=== PATIENT | male | born 1960 | race Caucasian/White ===

== ENCOUNTER 2021-08-18 11:49 | Day surgery (SDC) | payer MEDICARE ==
[2021-08-11 16:04] LABS: BASOPHILS % (AUTO) 0.1 % (0-1); EOSINOPHILS # (AUTO) 0.1 X10'3 (0-0.9); EOSINOPHILS % (AUTO) 0.7 % (0-6); LYMPHOCYTES # (AUTO) 2.2 X10'3 (1.1-4.8); LYMPHOCYTES % (AUTO) 28.2 % (21-51); MEAN CORPUSCULAR HEMOGLOBIN 34.2 PG (27.0-31.0); MEAN CORPUSCULAR HGB CONC 33.3 g/dL (33.0-36.5); MEAN CORPUSCULAR VOLUME 102.8 FL (78-98); MEAN PLATELET VOLUME 6.9 FL (7.4-10.4); MONOCYTES # (AUTO) 1.1 X10'3 (0-0.9); NEUTROPHILS # (AUTO) 4.4 X10'3 (1.8-7.7); PRE OP HEMATOCRIT 53.5 % (42.0-52.0); PRE OP HEMOGLOBIN 17.8 g/dL (14.0-17.9); PRE OP PLATELET COUNT 169 X10'3 (140-440); RED CELL DISTRIBUTION WIDTH 15.5 % (11.5-14.5)
[2021-08-11 16:26] LABS: ALBUMIN 3.5 G/DL (3.4-5.0); ALBUMIN/GLOBULIN RATIO 0.9 (1.1-1.5); ALKALINE PHOSPHATASE 73 IU/L (46-116); BLOOD UREA NITROGEN 17 MG/DL (7-18); CALCIUM 8.1 MG/DL (8.5-10.1); CHLORIDE 105 MMOL/L (99-107); CREATININE 1.21 MG/DL (0.60-1.10); PRE OP ALT 36 U/L (30-65); PRE OP ANION GAP 8 (8-16); PRE OP AST 29 U/L (10-37); PRE OP BILIRUB, TOTAL 0.4 MG/DL (0.0-1.0); PRE OP GLUCOSE 121 MG/DL (70-104); PRE OP POTASSIUM 4.3 MMOL/L (3.4-5.1); PRE OP SODIUM 140 MMOL/L (135-145); TOTAL CARBON DIOXIDE 27.2 MMOL/L (24-32); TOTAL PROTEIN 7.2 G/DL (6.4-8.2); eGFR 61 ML/MIN
[~2021-08-18] VITALS: Ht 172.7 cm; Wt 119.5 kg
[2021-08-18] VITALS (12 sets, daily range): BP systolic 136–147; BP diastolic 78–92
[~2021-08-18 11:49] MED LIST: ASPI-611 PO; LISI20TA28 PO; OXYC1TAB17 PO; VENL75CA55 PO; ZOLP5TAB2 PO; cefazolin/dext.iso 2gm/50ml IV ONE; famotidine 20mg tablet PO ONE; ringers solution, lacted 1,000 ML IV SCH
[2021-08-18] MEDS ORDERED: midazolam 1 mg/ML 2ml injection ONE (12:58)
[2021-08-18] MEDS ORDERED: FENTANYL CITRATE/PF 50 MCG/1 ML VIAL ONE ×2 (12:58→12:59)
[2021-08-18] MEDS ORDERED: glycopyrrolate 0.2mg/ml inj ONE (13:03)
[2021-08-18] MEDS ORDERED: rocuronium 10mg/ml inj IV ONE (13:03)
[2021-08-18] MEDS ORDERED: propofol inj 20 ML IV ONE (13:03)
[2021-08-18] MEDS ORDERED: phenylephrine 10mg/ml inj. ONE (13:03)
[2021-08-18] MEDS ORDERED: ePHEDrine 50MG/ML INJ. ONE (13:03)
[2021-08-18] MEDS ORDERED: neostigmine methylsulfate 1 MG/ML 10ml vial ONE (13:03)
[2021-08-18] MEDS ORDERED: dexamethasone sod phosphate 4mg/ml inj. ONE (13:03)
[2021-08-18] MEDS ORDERED: LIDOcaine 2% (20mg/ml) 5ml vial ONE (13:03)
[2021-08-18] MEDS ORDERED: ondansetron/PF 4mg/2ml inj ONE (13:03)
[2021-08-18] MEDS ORDERED: LIDOcaine 1% (10mg/ml)w/preservative inj. 20ml MDV ONE (13:22)
[2021-08-18] MEDS ORDERED: BUPIVAcaine 0.5% inj/PF 60 ML ONE (13:23)
[2021-08-18] MEDS ORDERED: BUPIVACAINE liposomal/PF 13.3 MG/ML vial IM ONE (13:23)
[2021-08-18] MEDS ORDERED: ringers solution, lacted 1,000 ML IV SCH (15:00)
[2021-08-18] MEDS ORDERED: morphine 4 MG/ML inj SYRINge IV PRN (15:00)
[2021-08-18] MEDS ORDERED: proCHLORperazine 10 MG/2 ml inj IV PRN (15:00)
[2021-08-18] MEDS ORDERED: ondansetron/PF 4mg/2ml inj IV PRN (15:00)
[2021-08-18] MEDS ORDERED: meperidine/PF 25mg/ml syringe IV PRN ×3 (15:00)
[2021-08-18] MEDS ORDERED: morphine 2 MG/ML inj. syringe IV PRN (15:00)
--- NOTE | 2021-08-18 15:03 | NUR ---
Received from OR via [facility] , accompanied by Anesthesiologist DR BAZAN and report given by Anesthesiolgist. PT PRESENTS WITH PIV 20G LEFT WRIST, ABD DRESSING CDI, VSS. Addendum: 08/18/21 at 1520 by Kay Pinon RN, RN Amended: Links added.
[2021-08-18] MEDS ORDERED: BUPIVAcaine 0.5% inj/PF 30 ml vial IJ ONE (15:10)
[2021-08-18] MEDS ORDERED: oxyCODONE/APAP 10/325mg tablet PO PRN (15:15)
--- NOTE | 2021-08-18 16:33 | NUR ---
I HAVE REVIEWED D/C INSTRUCTIONS WITH PATIENT AND THEY HAVE VERBALIZED UNDERSTANDING OF INSTRUCTIONS. PATIENT D/C HOME WITH ALL BELONGINGS AND FAMILY GAVE TRANSPORT Addendum: 08/18/21 at 1657 by Kay Pinon RN, RN Amended: Links added.
== END 2021-08-18 16:33 | disposition home or self-care (01) ==
LOC: PAS 11:49
PROVIDERS: ATTEND Surgery
DX: K43.2 Incisional hernia without obstruction or gangrene (principal); M62.08 Separation of muscle (nontraumatic), other site; F41.9 Anxiety disorder, unspecified; F32.A Depression, unspecified; G89.29 Other chronic pain; I10 Essential (primary) hypertension; M19.90 Unspecified osteoarthritis, unspecified site; E66.9 Obesity, unspecified; Z68.39 Body mass index [BMI] 39.0-39.9, adult; Z20.822 Contact with and (suspected) exposure to COVID-19; Z79.82 Long term (current) use of aspirin; Z79.899 Other long term (current) drug therapy; Z90.49 Acquired absence of other specified parts of digestive tract; Z98.890 Other specified postprocedural states; Z96.619 Presence of unspecified artificial shoulder joint
CPT/HCPCS: 36415; 49654; 64488; 80053; 82948; 85025; C1781; C9290; J1100; J2250; J2370; J2405; J2704; J2710; J3010; J3490; J7030; J7120; S0020; U0003; U0005; Z7506; Z7508; Z7512; A4215; A4618

== ENCOUNTER 2021-09-23 13:30 | Outpatient (CLI) | payer MEDICARE ==
[~2021-09-23 13:30] MED LIST changes: -cefazolin/dext.iso 2gm/50ml IV ONE; -famotidine 20mg tablet PO ONE; -ringers solution, lacted 1,000 ML IV SCH
[2021-09-23] MEDS ORDERED: LOSA100T57 PO (13:32)
[2021-09-23] MEDS ORDERED: AMLO5TAB16 PO (13:32)
[2021-09-23 14:26] LABS: BASOPHILS % (AUTO) 0.3 % (0-1); EOSINOPHILS % (AUTO) 0.5 % (0-6); LYMPHOCYTES # (AUTO) 2.1 X10'3 (1.1-4.8); LYMPHOCYTES % (AUTO) 26.2 % (21-51); MEAN CORPUSCULAR HEMOGLOBIN 34.2 PG (27.0-31.0); MEAN CORPUSCULAR HGB CONC 33.3 g/dL (33.0-36.5); MEAN PLATELET VOLUME 6.8 FL (7.4-10.4); MONOCYTES # (AUTO) 1.1 X10'3 (0-0.9); MONOCYTES % (AUTO) 13.8 % (2-12); NEUTROPHILS # (AUTO) 4.7 X10'3 (1.8-7.7); NEUTROPHILS % (AUTO) 59.2 % (42-75); PRE OP HEMATOCRIT 54.2 % (42.0-52.0); PRE OP PLATELET COUNT 154 X10'3 (140-440); RED BLOOD COUNT 5.26 X10'6 (4.70-6.10); RED CELL DISTRIBUTION WIDTH 14.7 % (11.5-14.5)
[2021-09-23 14:35] LABS: PRE OP INR 1.1 INR; PRE OP PROTIME 10.9 SECONDS (9.0-12.0)
[2021-09-23 14:36] LABS: ALBUMIN 3.8 G/DL (3.4-5.0); ALKALINE PHOSPHATASE 78 IU/L (46-116); BLOOD UREA NITROGEN 20 MG/DL (7-18); BUN/CREATININE RATIO 15.3 (5.4-32.0); CHLORIDE 104 MMOL/L (99-107); CREATININE 1.31 MG/DL (0.60-1.10); PRE OP ALT 38 U/L (30-65); PRE OP ANION GAP 12 (8-16); PRE OP AST 31 U/L (10-37); PRE OP BILIRUB, TOTAL 0.4 MG/DL (0.0-1.0); PRE OP GLUCOSE 118 MG/DL (70-104); PRE OP SODIUM 139 MMOL/L (135-145); TOTAL CARBON DIOXIDE 23.5 MMOL/L (24-32); TOTAL PROTEIN 7.8 G/DL (6.4-8.2); eGFR 56 ML/MIN
[2021-09-23 14:37] LABS: PRE OP POTASSIUM 4.8 MMOL/L (3.4-5.1)
== END 2021-09-23 23:59 | disposition home or self-care (01) ==
LOC: PRE-OP 13:30 → EDSTATUS 10-01 07:30
PROVIDERS: ATTEND Orthopaedic Surgery
DX: Z01.812 Encounter for preprocedural laboratory examination (principal); M17.12 Unilateral primary osteoarthritis, left knee
CPT/HCPCS: 36415; 80053; 85025; 85610; 85730; 86885; 86900; 86901; 86920; 87081; U0003; U0005